=== PATIENT | male | born 1970 | race Caucasian/White ===

== ENCOUNTER 2020-03-26 10:43 | Emergency (ER) | payer BC, SELFPAY ==
[2020-03-26 10:44] VITALS: BP 133/97; PULSE 74; RESP 16; TEMP 36.6; O2SAT 98; BMI 27.8
--- NOTE | 2020-03-26 10:56 | ED.DCSUM_ITS ---
- ER Visit Summary Date of Service: 03/26/20 Chief Complaint: Right forearm laceration History of Present Illness: The patient is a 50 M who presents with a laceration to his right forearm that occurred today. Patient states he was removing nail from drywall when the hammer slipped. Patient states that there was some wire sticking out of the drywall and he cut his hand on the exposed wire. Patient denies any foreign bodies in the wound. Patient states she applied pressure to the area and came to the emergency department. Patient does not remember his last tetanus. Patient denies any paresthesias or weakness. Physical Examination: Vital signs are stable. Patient is afebrile. Patient is in no acute distress. Musculoskeletal exam shows a 4 cm full-thickness linear laceration of the ulnar aspect of the right forearm. There are no foreign bodies. There is moderate gapping of the wound margins. There is no active bleeding noted. Sensation was intact light touch in all digits. Capillary refill was less than 2 seconds in all digits. Strength is 5/5 in flexion and extension of the MP, PIP, and DIP joints as well as the wrist. Ho's test was negative. Emergency Department Course and Treatment: The wound was cleaned and irrigated with copious amounts of normal saline. The wound was anesthetized with 1% plain lidocaine locally. The wound was closed with 5 simple interrupted #4 -0 nylon sutures under sterile technique. Patient tolerated the procedure well. Bacitracin dressing was applied. Bacitracin dressing was applied. Patient was given a dose of Keflex here. Patient was given a prescription for Keflex. Patient was given a tetanus booster here. Patient was instructed to keep the wound clean and dry. Patient was instructed to follow-up with his primary care physician in 7 days for wound recheck and suture removal. Patient understood and was agreeable with the plan. All questions were answered. Disposition: Discharge home Impression: Right forearm laceration This note was generated with [employer] dictation software. It may contain incorrect words, spelling, and punctuation that were not noted in review of the chart prior to signing ED Disposition - Plan for ED Patient: Disposition: Home or Assisted Living Diagnosis: Laceration of right forearm Instructions: ED Laceration Ext Sutr Stap Tape Prescriptions: Cephalexin [Keflex] 500 mg PO Q6 #40 cap Prescription Printed Referrals: Care Physician,No Primary [NON-STAFF] - 7 Days for suture removal
[2020-03-26] MEDS: Diphth,Pertuss(Acell),Tet Vac 0.5 ML Vial IM (11:46)
[2020-03-26] MEDS: Cephalexin 250 MG Capsule 500 MG PO (11:47)
[2020-03-26] MEDS: BACITRACIN 15 GM Tube 1 APPLIC TOPICAL (11:47)
== END 2020-03-26 12:25 | disposition home or self-care (01) ==
LOC: ED 11:20
PROVIDERS: Emergency Provider Emergency Medicine; PCP Family Medicine
DX: S51.811A Laceration without foreign body of right forearm, initial encounter (principal); W45.0XXA Nail entering through skin, initial encounter; Y93.89 Activity, other specified; Y92.9 Unspecified place or not applicable
CPT/HCPCS: 12002; 90471; 90715; 99284

== ENCOUNTER 2020-12-10 12:48 | Emergency (ER) | payer OTHER, SELFPAY ==
[2020-12-10 12:49] VITALS: BP 164/103; PULSE 68; RESP 16; TEMP 36.2; O2SAT 98; BMI 27.8
--- NOTE | 2020-12-10 12:57 | ED.VIS.GEN ---
History of Present Illness Chief Complaint: Chest Pain Informant: Patient Narrative: 50-year-old male presents with concern for left shoulder and chest pain. States is been present for approximately 1 month. States it is a constant aching. States it is significantly worse with movement. Particular watch while he is using his left arm to drive. Denies any known injury. Denies any numbness or tingling. Denies any shortness of breath, nausea, vomiting, diaphoresis. Past Medical History - Allergies and Home Meds Allergies/Adverse Reactions: Allergies No Known Allergies Allergy (Verified 12/10/20 12:48) Primary Care Physician: Renita Morin MD [Primary Care Provider] - Prior records reviewed: Yes Past Medical History: None Surgical History: no surgical history Lives: Spouse/ Significant Other Smoking Status: Never smoker Alcohol: None Drugs: None Review of Systems General: Denies: Chills, Fever, Sweats Eyes: Denies: Visual changes - bilaterally, Diplopia ENT: Denies: Rhinorrhea, Sore throat Cardiovascular: Reports: Chest pain. Denies: Palpitations Respiratory: Denies: Dyspnea, Cough, Dyspnea on exertion Gastrointestinal: Denies: Abdominal pain, Nausea, Vomiting, Diarrhea, Melena, Hematochezia Genitourinary: Denies: Dysuria, Hematuria, Frequency Musculoskeletal: Reports: Myalgias, Arthralgias. Denies: Back pain, Extremity Pain Skin: Denies: Rash, Wounds Neurological: Denies: Headache, Weakness, Numbness Physical Exam Vital Signs/Narrative: Vital Signs Temp Pulse Resp BP Pulse Ox 12/10/20 12:49 97.1 F L 68 16 164/103 H 98 Inital Vital Signs reviewed: Yes General: Well nourished, Well developed, No Acute Distress Head: Normocephalic, Atraumatic Eyes: Perrl, EOMI ENT: Moist mucous membranes, No rhinorrhea Neck: Supple, Nontender Cardiovascular: Regular rate, Regular rhythm, No murmurs Respiratory: No distress, CTA bilaterally, - - TTP over the left lateral chest just medial to the left shoulder. Abdomen: Soft, Nontender, Nondistended, Normal bowel sounds Back: Nontender, Normal Inspection Extremities: Nontender, No edema Skin: Normal color, No rash Neurological: Alert, Oriented x3, Cranial nerves II-XII grossly intact, Normal Strength, Normal Sensation Psychological: Normal affect, Normal Mood Diagnostic/Tx/Re-eval Clinical Impression(s) from Imaging Studies Shoulder X-Ray 12/10/20 13:09 IMPRESSION: No acute abnormality is seen. Electronically Signed: Flo Woods, at 13:51 EST , Service support , - Medical Decision Making Patient appears well and nontoxic. Vital signs within normal limits. Patient has tenderness in the muscle belly of the pectoralis. Low concern for ACS. Muscular Toradol. X-ray negative. Patient will follow up with his primary care provider and was also given orthopedic follow-up if continued pain. Was given Naprosyn for home. Asked to return for new or worsening symptoms. Patient agreeable and discharged home in stable condition. Impression: 1. Left chest wall pain ED Disposition - Plan for ED Patient: Disposition: Home or Assisted Living Instructions: ED Strain Chest Wall Prescriptions: Naproxen [Naprosyn] 500 mg PO BID #14 tab Prescription Printed Referrals: Renita Morin MD [Primary Care Provider] - 2 Days Leonardo King DO [STAFF PHYSICIAN] - 5-7 Days
--- NOTE | 2020-12-10 13:09 | RAD_ITS ---
STUDY: X-RAY - LEFT SHOULDER REASON FOR EXAM: Male, 50 years old. LEFT SIDED CHEST WALL/SHOULDER PAIN, WORSE WITH MOVEMENT. SYMPTOMS STARTED THURSDAY. TECHNIQUE: 4 view(s) of the shoulder. COMPARISON: None. FINDINGS: Normal glenohumeral articulation. Normal acromioclavicular joint. Normal acromion. There is a 7 mm rounded bone island in the medial aspect of the humeral head. The soft tissue structures are unremarkable. Normal visualized pulmonary apex. RAD/Shoulder min 2 Views IMPRESSION: No acute abnormality is seen. Electronically Signed: Flo Woods, at 13:51 EST , Service support ,
[2020-12-10] MEDS: Ketorolac 15 MG/ML Vial IM (13:22)
[2020-12-10 14:06] VITALS: BP 144/90; PULSE 60; RESP 16; O2SAT 100
== END 2020-12-10 14:07 | disposition home or self-care (01) ==
PROVIDERS: Emergency Provider Emergency Medicine; PCP Internal Medicine
DX: R07.89 Other chest pain (principal); M25.512 Pain in left shoulder
CPT/HCPCS: 73030; 96372; 99282

== ENCOUNTER → 2021-05-06 14:51 | Outpatient (CLI) | payer OTHER, SELFPAY ==
[2021-05-06 15:40] LABS: Hemoglobin A1c 5.2 % (3.8-5.6)
[2021-05-06 15:46] LABS: Cholesterol 198 mg/dL (200); High Density Lipoprotein 53 mg/dL; PSA,Total - Annual Screen 1.49 ng/mL (0.00-4.00); Triglycerides 141 mg/dL; Very Low Density Lipoprotein 28 mg/dL (5-40)
[2021-05-06 16:18] LABS: HIV - WCH Non-Reactive (Nonreactive); Hepatitis C Antibody Non-Reactive (Nonreactive)
== END ==
PROVIDERS: PCP Internal Medicine; Referring Provider Clinical Nurse Specialist; Visit Provider Clinical Nurse Specialist
DX: Z13.1 Encounter for screening for diabetes mellitus (principal); Z11.59 Encounter for screening for other viral diseases; N40.1 Benign prostatic hyperplasia with lower urinary tract symptoms; R39.15 Urgency of urination; Z13.220 Encounter for screening for lipoid disorders
CPT/HCPCS: 36415; 80061; 83036; 84153; 86703; 86803; G0103

== ENCOUNTER 2023-01-30 09:01 | Emergency (ER) | payer BC, OTHER, SELFPAY ==
[2023-01-30 09:01] VITALS: BP 138/84; PULSE 66; RESP 18; TEMP 36.5; O2SAT 99; BMI 31.1
--- NOTE | 2023-01-30 09:39 | EDS_ITS ---
HPI History of Present Illness Chief Complaint: Back Informant: patient and spouse/S.O. Narrative Narrative: Patient states that he started to get some soreness of his back last evening. It is just mild. It is all really located in 1 spot on the left. He states pressing on it makes it worse and twisting makes it worse. When he got up this morning it was very tight. He got up out of bed but had trouble standing due to the pain. No pain radiated anywhere down his legs or buttock. He did not have numbness tingling or weakness. It just hurt a lot when he tried to stand up straight. He laid on the floor for a while. He then was slowly able to get up. He is doing better now as he gets up and walks around. But he still has pain in the area. He has not had any acute trauma. He does sit at a desk quite frequently. But no lifting pulling bending or falls. He has not been sick. He has no fevers chills sweats or recent infections. No history of aortic pathology. He does have high blood pressure but takes lisinopril. He has no bowel or bladder dysfunction. He has no trouble starting or stopping stream's. He is on a medicine for BPH similar to Flomax. But he is not having any urinary symptoms. He is moving his bowels normally. No blood in the stool. He feels better standing up than he does sitting or laying down at this moment. No prior back surgeries. He does report family history of prostate cancer but he has never been diagnosed with that and as far as he knows his PSAs have been normal. PFSH [facility] Home Medications citalopram 20 mg tablet 20 mg PO DAILY 12/10/20 [History Last Taken Unknown] lisinopril 20 mg tablet 20 mg PO DAILY 12/10/20 [History Last Taken Unknown] naproxen 500 mg tablet 500 mg PO BID #14 tabs 12/10/20 [Rx Last Taken Unknown] cyclobenzaprine 10 mg tablet 10 mg PO TID PRN Muscle Spasm #12 TABLETS 01/30/23 [Rx Last Taken Unknown] hydrocodone-acetaminophen 5-325mg 5mg-325mg 1 tab PO Q6H PRN pain 2 days #8 TABL ETS 01/30/23 [Rx Last Taken Unknown] Allergy/AdvReac Type Severity Reaction Status Date / Time No Known Allergies Allergy Verified 01/30/23 09:05 Social History Smoking Status: Never smoker ROS ROS ED Constitutional Constitutional ED: Denies chills, fever(s), subjective or sweats Eyes Eyes: Denies change in vision ENT ENT ED: Denies rhinorrhea or sore throat Cardiovascular Cardiovascular: Denies chest pain or palpitations Respiratory/Chest Respiratory/Chest: Denies dyspnea Gastrointestinal Gastrointestinal: Denies abdominal pain, constipation, diarrhea, melena, nausea or vomiting Genitourinary Genitourinary ED: Denies dysuria, hematuria or urinary frequency Musculoskeletal Musculoskeletal: Reports back pain; Denies arthralgias, myalgias or neck pain Integumentary Denies abscess, Abrasions or rash Neurologic Neurologic: Denies headache(s), paresthesias or weakness Endocrine Endocrinology: Denies polydipsia or polyuria Hematologic/Lymphatic Hematologic/Lymphatic: Denies easy bleeding or easy bruising Allergic/Immunologic Allergic/Immunologic ED: Denies urticaria EXAM Physical Exam Narrative Exam Narrative: Patient awake alert. He is standing up and walking around the room when I come in. He is not pacing. This does not look like kidney stone. He has no history of stones or hematuria. HEENT shows no trauma or pallor. Eyes show no icterus or pallor Lungs are clear bilaterally. Heart is regular without murmur gallop rub or tachycardia. Abdomen is soft completely nontender. There is no bruit. There is no mass. No pulsating. No distention. Back shows a slight red area where he has been rubbing his thumb. But there is no sign of infection or abscess. This looks like it is on the skin from rubbing. That area is a little bit tender and there may be a little tightness in the muscles. But nowhere else is tender. Right side is not tender. There is no buttock or sciatic notch tenderness. Neurologic: Patient has normal leg strength. He can stand on and off the bed by himself. He has strong 2+ patellar and Achilles reflex. He has no clonus. No sensory change. He has no rectal buttock area numbness. Const Vital Signs: 01/30/23 09:01 Temperature 97.7 F L Temperature Source Temporal Pulse Rate 66 Respiratory Rate 18 Blood Pressure 138/84 H Blood Pressure Mean 102 Pulse Ox 99 Oxygen Delivery Method Room Air MDM MDM MDM Narrative Medical decision making narrative: Patient really does not have any real red flags for back pain. He is getting of few years of age. He has a family history of prostate disease but I do not think this likely represents metastatic disease as he has never had elevated PSAs. We will get an x-ray which they would like. I think this is quite reasonable. I will also check urine to make sure we do not see any large amount of blood. He has never had a kidney stone and his symptoms are really not consistent with typical stone. My independent interpretation the patient's two-view LS spine shows some mild arthritic changes but no lesions or compression fracture. Final reading is similar. Urine is clean. Patient is feeling much better. I do not think this represents AAA or acute cord compression. I think we can get him home. He states he had a pinched nerve in his neck once before and responded really well when they gave him a shot of steroids. I explained that we will do that here as this may give him some benefit. I will give him a few pain pills and muscle relaxants for a few days. History & Record Review Additional record(s) reviewed:: Other ([facility] prescribing online report reviewed.) Lab Data Labs: Laboratory Results - last 24 hr 01/30/23 10:01 Urine Color Yellow Urine Clarity Sl. Cloudy Urine pH 6.0 Ur Specific [place] 1.020 Urine Protein 15 H Urine Glucose (UA) Normal Urine Ketones Negative Urine Occult Blood Negative Urine Nitrite Negative Urine Bilirubin Negative Urine Urobilinogen Normal Ur Leukocyte Esterase Negative Urine RBC 0 SEEN Urine WBC 0 SEEN Ur Squamous Epith Cells 0-5 SEEN Urine Bacteria 0 SEEN Urine Mucus 0 SEEN Radiography Diagnostic Testing: Clinical Impression(s) from Imaging Studies Lumbar Spine X-Ray 01/30/23 09:58 IMPRESSION: Degenerative changes of the spine, as detailed above. Electronically Signed: Flo Woods MD at 10:18 EST , Discharge Plan Triage Chief Complaint: Back ED Provider: Yahir Reese Dx/Rx/DC Orders Clinical Impression: Acute lumbar myofascial strain Instructions: ED Back Sprain/Strain Prescriptions: New cyclobenzaprine [cyclobenzaprine] 10 mg tablet 10 mg PO TID PRN (Reason: Muscle Spasm) Qty: 12 0RF hydrocodone-acetaminophen [hydrocodone-acetaminophen] 5-325 mg tablet 1 tab PO Q6H PRN (Reason: pain) 2 Days Qty: 8 0RF No Action lisinopril 20 MG tablet 20 mg PO DAILY citalopram 20 MG tablet 20 mg PO DAILY naproxen 500 MG tablet 500 mg PO BID Qty: 14 0RF Primary Care Provider: Renita Morin Referrals: Renita Morin MD [Primary Care Provider] - 3-5 Days if not improving Disposition Disposition: Home, Self Care
--- NOTE | 2023-01-30 09:58 | RAD_ITS ---
STUDY: X-RAY - LUMBAR SPINE REASON FOR EXAM: Male, 52 years old. Left lower extremity pain. Low back pain. TECHNIQUE: 2 view(s) of the lumbar spine were obtained. COMPARISON: None FINDINGS: Normal lumbar lordosis. There is a minimal levoscoliosis of the lumbar spine. There is a normal alignment of the vertebrae. There is multilevel endplate spondylosis of the lumbar vertebrae. There is multi-level degenerative disc disease with multi-level disc space narrowing. The soft tissue structures are unremarkable. RAD/Lumbar Spine 2 or 3 Views IMPRESSION: Degenerative changes of the spine, as detailed above. Electronically Signed: Flo Woods MD at 10:18 EST ,
[2023-01-30] MEDS: oxyCODONE 5 MG Tablet PO (09:59)
[2023-01-30] MEDS: cycloBENZAPRine HCl 10 MG Tablet PO (09:59)
[2023-01-30 10:05] LABS: Bacteria 0 SEEN /hpf (None Seen); Mucous, Urine 0 SEEN /hpf (<or=2+); Red Blood Cells-Urine 0 SEEN /hpf (0-5); White Blood Cells 0 SEEN /hpf (0-5)
[2023-01-30 10:22] LABS: Color, Urine Yellow (Yellow); Glucose, Dipstick Normal (Normal); Ketone-Dipstick Negative (Negative); Leukocyte Esterase-Dipstick Negative /ul (Negative); Nitrite-Dipstick Negative (Negative); Occult Blood-Urine Negative /ul (Negative); Protein-Dipstick 15 mg/dl (Negative); Urine Bilirubin Dipstick Negative (Negative); Urine Clarity Sl. Cloudy (Clear); Urine Urobilinogen Normal (Normal)
[2023-01-30 10:39] LABS: Squamous Epithelial Cells - UA 0-5 SEEN /hpf (0-5)
[2023-01-30] MEDS: Triamcinolone Acetonide 40 MG/ML Vial IM (11:31)
== END 2023-01-30 12:09 | disposition home or self-care (01) ==
PROVIDERS: Emergency Provider Emergency Medicine; PCP Internal Medicine; Visit Provider Emergency Medicine
DX: S39.012A Strain of muscle, fascia and tendon of lower back, initial encounter (principal); X58.XXXA Exposure to other specified factors, initial encounter
CPT/HCPCS: 72100; 81001; 96372; 99283

== ENCOUNTER 2023-11-30 05:54 | Emergency (ER) | payer BC, OTHER, SELFPAY ==
[2023-11-30 05:56] VITALS: BP 127/84; PULSE 63; RESP 15; TEMP 36.1; O2SAT 97; BMI 30.7
[2023-11-30] MEDS: diazePAM 5 MG Tablet PO (07:19)
--- NOTE | 2023-11-30 08:10 | EDS_ITS ---
HPI History of Present Illness Chief Complaint: Hypoglycemia Informant: patient and spouse/S.O. 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 He states that he is on lispro and glargine. He reports around 2 in the morning he took his long-acting insulin and he is supposed to take 20 units and he believes he may have given himself 40. He awoke not feeling well around 4 AM and his blood sugar was reportedly 50. states that she gave him multiple sugary foods and it was taking a long time for his blood sugar to elevate and therefore EMS was called. EMS states by the time they arrived his blood sugar was approximately 160 but based on the potential for persistent hypoglycemia he presents for evaluation. [facility] Medical History (Updated 11/30/23 @ 08:[address] Judson Paige DO) Diabetes Hypertension Necrotizing pancreatitis Home Medications citalopram 20 mg tablet 20 mg PO DAILY 12/10/20 [History Last Taken Unknown] amlodipine 2.5 mg tablet 2.5 mg PO DAILY 11/30/23 [History Last Taken Unknown] insulin glargine U-300 conc 300 unit/mL (3 mL) subcutaneous pen (Toujeo Max U- 300 SoloStar) 20 unit subcut QHS 11/30/23 [History Last Taken Unknown] insulin lispro 100 unit/mL subcutaneous pen subcut PRN hyperglycemia 11/30/23 [History Last Taken Unknown] metformin 500 mg tablet,extended release 24 hr 2,000 mg PO DAILY 11/30/23 [History Last Taken Unknown] tamsulosin 0.4 mg capsule 0.4 mg PO DAILY 11/30/23 [History Last Taken Unknown] Allergy/AdvReac Type Severity Reaction Status Date / Time No Known Allergies Allergy Verified 11/30/23 06:06 Social History Smoking Status: Never smoker ROS ROS ED Constitutional Constitutional ED: Reports sweats; Denies chills or fever(s) Eyes Eyes: Denies change in vision ENT ENT ED: Denies sore throat Cardiovascular Cardiovascular: Denies chest pain Respiratory/Chest Respiratory/Chest: Denies cough or dyspnea Gastrointestinal Gastrointestinal: Reports nausea; Denies abdominal pain, diarrhea or vomiting Genitourinary Genitourinary ED: Denies dysuria Musculoskeletal Musculoskeletal: Denies myalgias Integumentary Denies rash Neurologic Neurologic: Reports weakness; Denies headache(s) Hematologic/Lymphatic Hematologic/Lymphatic: Denies easy bleeding or easy bruising EXAM Physical Exam Const Vital Signs: 11/30/23 05:56 11/30/23 06:04 Temperature 97.0 F L Temperature Source Temporal Pulse Rate 63 Respiratory Rate 15 Respiratory Effort Non-Labored Respiratory Pattern Normal Blood Pressure 127/84 H Blood Pressure Mean 98 Pulse Ox 97 Oxygen Delivery Method Room Air Positive well nourished and well developed General Appearance ED: well developed HEENT Reports moist mucous membranes HEENT Narrative: No signs of infection noted in the posterior pharynx Eyes PERRL and EOMs intact bilaterally General Eye ED: Negative for scleral icterus Neck supple Neck Narrative: No nuchal rigidity or meningeal signs Resp normal respiratory effort and clear to auscultation bilaterally Cardio regular rate and regular rhythm Rate: other Other Details: Heart is regular rate and rhythm without murmurs rubs or gallops Radial and carotid pulses equal and symmetric GI normal to inspection, nondistended, normoactive bowel sounds, non-tender, non-d istended and no masses Auscultation: normoactive bowel sounds Palpation: soft Extremity normal to inspection Neuro oriented x3, CN's II-XII intact bilaterally and no sensory deficits noted Neuro Narrative: Cranial nerves II through XII are grossly intact there are no focal neurologic deficits NIH stroke scale score of 0 Sensorium / Orientation: alert Motor Exam: strength 5/5 throughout Psych mental status grossly normal Skin no rashes or lesions noted MDM MDM MDM Narrative Medical decision making narrative: Patient presented to the ER with stable vitals he is awake alert and oriented and without having to provide any medication his blood sugar has now elevated to approximate 160. As there is concern that based on his long-acting insulin use that he could drop and require consistent dextrose through an IV route I did elect to watch him in the ER do not feel there is need for laboratory studies as he has an insulin monitor on and can check this without need for IV placement. The patient's blood sugar peaked at approximate 190 and then decreased to about 130. However his vitals have remained stable his neurostatus is normal and technically his value of 130 is well above the hypoglycemic event. Therefore at this time as it does appear his glucose is holding stable and patient is awake and alert and oriented with stable vitals he can eat food to keep the blood sugar elevated and is otherwise safe for discharge. History & Record Review Discussion w/independent historian: Patient and Significant other Discharge Plan Triage Chief Complaint: Hypoglycemia ED Provider: Judson Paige Dx/Rx/DC Orders Clinical Impression: Insulin dependent diabetes mellitus, Hypoglycemia, History of hypertension Instructions: Blood Sugar Check Steps, ED Diabetic Insulin Reaction Prescriptions: No Action citalopram 20 MG tablet 20 mg PO DAILY amlodipine 2.5 mg tablet 2.5 mg PO DAILY tamsulosin 0.4 mg capsule 0.4 mg PO DAILY metformin 500 mg tablet extended release 24 hr 2,000 mg PO DAILY Patient Comments: AT DINNER TIME Toujeo Max U-300 SoloStar 300 unit/mL (3 mL) insulin pen 20 unit SUBCUT QHS insulin lispro 100 unit/mL insulin pen SUBCUT PRN (Reason: hyperglycemia) Patient Comments: PRN Primary Care Provider: Renita Morin Referrals: Renita Morin MD [Primary Care Provider] - Disposition Disposition: Home, Self Care
[2023-11-30 08:15] VITALS: BP 128/71; PULSE 68; RESP 15; O2SAT 99
== END 2023-11-30 08:17 | disposition home or self-care (01) ==
PROVIDERS: Emergency Provider Emergency Medicine; PCP Internal Medicine; Visit Provider Emergency Medicine
DX: E11.649 Type 2 diabetes mellitus with hypoglycemia without coma (principal); Z79.4 Long term (current) use of insulin; I10 Essential (primary) hypertension; Z79.84 Long term (current) use of oral hypoglycemic drugs; Z79.899 Other long term (current) drug therapy
CPT/HCPCS: 99282